=== PATIENT | female | born 1980 | race Caucasian/White ===

== ENCOUNTER 2022-06-28 16:43 | Outpatient (CLI) | payer BC | END 2022-06-28 16:44 | disposition home or self-care (01) | LOC: CSHRAD 16:43 | PROVIDERS: ATTEND Family Medicine | DX: J40 Bronchitis, not specified as acute or chronic (principal) | CPT/HCPCS: 71046 ==

== ENCOUNTER 2022-08-09 05:16 | Emergency (ER) | payer BC ==
[2022-08-09] MEDS ORDERED: Diazepam 10 MG/2 ML SYRINGE ONE (08:30)
== END 2022-08-09 09:27 | disposition home or self-care (01) ==
LOC: CSHERS 05:16
DX: F41.0 Panic disorder [episodic paroxysmal anxiety] (principal); F41.9 Anxiety disorder, unspecified; Z87.891 Personal history of nicotine dependence
CPT/HCPCS: 93005; 96372; J3360